=== PATIENT | female | born 1935 | race Caucasian/White ===

== ENCOUNTER 2016-11-24 21:50 | Emergency (ER) | payer OTHER ==
[2016-11-24 22:05] VITALS: PULSE 60; TEMP 97.4; BMI 20.2
--- NOTE | 2016-11-24 22:09 | PDOC ---
History of Present Illness - General Chief Complaint: Bite Stated Complaint: BITE TO RIGHT FOOT Time Seen by Provider: 11/24/16 22:07 - History of Present Illness Initial Comments: This 81-year-old woman with a history of atrial fibrillation/hyperlipidemia/ hypothyroidism presents with right foot discomfort and lightheadedness for the last few hours. Patient states that she was walking with a friend in a grassy area when she had sensation of being bitten on the lateral aspect of her right foot. Over the next few hours, the discomfort persisted with sensation of numbness to touch of the left foot. She noted some localized faint erythema and edema around the area where she felt the pain. She also became lightheaded. She called the friend and proceeded to the emergency room. The patient and friend did not note any animal/reptile in the area of where they were walking. The patient had consult to the Internet prior to coming to the emergency room and was concerned that she was bitten by a snake. Patient denies any sensitivity/ALLERGY to insect toxin, stating that she has been bitten/stung by wasps in the past without the level of discomfort that she is feeling now. Patient denies swelling of lips/tongue, difficulty swallowing or breathing, wheezing, chest pain or abdominal pain. She has had no nausea/vomiting. Patient is currently taking Xarelto anticoagulation for her atrial fibrillation. She is taking medications as prescribed Patient states that her PMD is Bladimir Chaney Past History - Past Medical History Allergies/Adverse Reactions: Allergies Allergy/AdvReac Type Severity Reaction Status Date / Time Penicillins Allergy Intermediate Rash Verified 11/24/16 21:52 Home Medications: Ambulatory Orders Levothyroxine [Synthroid] 112 mcg PO DAILY 08/02/12 Rivaroxaban [Xarelto -] 20 mg PO DAILY 11/24/16 Cardiac Disorders: Yes (ATRIAL FIBRILLATION) Hypercholesterolemia: Yes Thyroid Disease: Yes (HYPO) - Psycho/Social/Smoking Cessation Hx Anxiety: No Suicidal Ideation: No Smoking Status: No Smoking History: Never smoked Have you smoked in the past 12 months: No Number of Cigarettes Smoked Daily: 0 Information on smoking cessation initiated: No Hx Alcohol Use: No Drug/Substance Use Hx: No Review of Systems - Review of Systems Able to Perform ROS?: Yes Comments:: 12 point review of systems is negative except for what is noted in the history of present illness *Physical Exam - Vital Signs Last Vital Signs Temp Pulse Resp BP Pulse Ox 97.4 F L 60 18 168/79 100 11/24/16 22:01 11/24/16 22:01 11/24/16 22:01 11/24/16 22:01 11/24/16 22:01 - Physical Exam Comments: GENERAL: Elderly female, anxious but in no acute distress HEAD: Normal with no signs of trauma. EYES: PERRLA, EOMI, sclera anicteric, conjunctiva clear. ENT: Ears normal, nares patent, oropharynx clear without exudates. Dry mucous membranes. NECK: Normal range of motion, supple without lymphadenopathy, JVD, or masses. LUNGS: Breath sounds equal, clear to auscultation bilaterally. No wheezes, and no crackles. HEART:Regular rate and rhythm, normal S1 and S2 without murmur, rub or gallop. ABDOMEN:.normal bowel sounds No guarding,tenderness or rebound.No masses No distention. EXTREMITIES: Right lower extremityfaintly erythematous, mildly edematous, nontender 2 cm by 1 cm area of the lateral midfoot No central bite pierce noted; no proximal erythema or edema noted Remainder of the extremity exam is normal NEUROLOGICAL: Cranial nerves II through XII grossly intact. Normal speech. No focal neurological deficits. MUSCULOSKELETAL: Back non-tender to palpation, no CVA tenderness ED Treatment Course - LABORATORY CBC & Chemistry Diagram: 11/24/16 22:30 11/24/16 22:30 Medical Decision Making - Medical Decision Making This 81-year-old woman presents with discomfort in the lateral aspect of her right foot; this sharp pain occurred suddenly as she was walking in a grassy area approximately 2-1/2 hours prior to presentation. She was wearing shoes that had this area of skin exposed. She has had persistent discomfort and numbness of the foot. Other than lightheadedness, she has no other symptoms. Exam as noted with mild inflammation around an area without clear bite pierce seen. Remainder of the exam is normal. Although this presentation is most consistent with local reaction to insect bite , since the patient is convinced that she has sustained a snake bite (after reading about her symptoms on the Internet) and since she has lightheadedness, CBC, chemistry profile, cardiac enzymes, INR and urinalysis was sent. Laboratory evaluation shows some evidence of prerenal azotemia with BUN of 17 and creatinine of 0.5; there is no evidence of electrolyte abnormalities, LFT elevations. CBC is normal. Urinalysis shows no evidence of unusual casts or myoglobinuria. CK and troponin are normal. INR is elevated at 2. Patient was given 650 mg of Tylenol by mouth for her pain while awaiting completion of her laboratory evaluation. Soon after she was given the Tylenol, pain resolved and she had no further numbness in the area around the presumed bite wound. Results discussed with the patient. She should follow-up with her general doctor within the next few days, especially in light of her elevation of INR ( most likely related to her NOAC and not a coagulopathy). Meanwhile, she should elevate and put cool compresses to the right foot. She should return to the emergency room if the right foot becomes edematous/erythematous/more painful. *DC/Admit/Observation/Transfer Diagnosis at time of Disposition: Other superficial bite of right foot - Discharge Dispostion Disposition: HOME Condition at time of disposition: Stable - Patient Instructions Printed Discharge Instructions: DI for Insect Bites and Stings Additional Instructions: Elevate/cool compresses to area of bite over the next 2 days Tylenol as needed for pain Return to ER or see Dr. Hnery if wound becomes more swollen/red/painful or you develop fever Follow-up with Dr. Henry within the next week
[2016-11-24 22:41] LABS: BASOPHIL 1.9 % (0-2.0); EOSINOPHIL 4.8 % (0-4.5); MCH 29.4 pg (25.7-33.7); MCHC 33.8 g/dl (32.0-36.0); MEAN CELL VOLUME 86.9 fl (80-96); MEAN PLT VOLUME 8.4 fl (7.5-11.1); NEUTROPHILS 54.4 % (42.8-82.8); RDW 15.1 % (11.6-15.6); WHITE BLOOD COUNT 5.4 K/mm3 (4.0-10.8)
[2016-11-24 22:52] LABS: INR 2.19 (0.82-1.09); PROTHROMBIN TIME (PATIENT) 24.2 SEC (10.2-13.0)
[2016-11-24] MEDS ORDERED: ACETAMINOPHEN 325 MG TABLET (FP) PO ONE (22:54)
[2016-11-24] MEDS ORDERED: ACETAMINOPHEN 325 MG TABLET (FP) ONE (22:56)
[2016-11-24 23:13] LABS: ALBUMIN 4.4 g/dl (3.5-5.0); ALK PHOS 58 U/L (32-92); ANION GAP 5 (8-16); BILIRUBIN,TOTAL 0.5 mg/dl (0.2-1.0); CALCIUM 10.1 mg/dl (8.4-10.2); CO2 27 mmol/L (22-28); CPK 48 IU/L (26-192); CREATININE 0.5 mg/dl (0.6-1.3); GLUCOSE,RANDOM 112 mg/dl (74-106); SGOT/AST 24 U/L (10-42); SGPT/ALT 15 U/L (10-40); TOT PROT 6.3 g/dl (6.4-8.3)
[2016-11-24 23:26] LABS: PLATELET COUNT 230 K/MM3 (134-434)
[2016-11-24 23:27] LABS: URINE APPEARANCE Clear; URINE BILIRUBIN Negative (NEGATIVE); URINE BLOOD Negative (NEGATIVE); URINE GLUCOSE (UA) Negative (NEGATIVE); URINE KETONE 1+ (NEGATIVE); URINE NITRITE Negative (NEGATIVE); URINE PROTEIN Negative (NEGATIVE); URINE UROBILINOGEN 0.2 (0.2-1.0)
[2016-11-24 23:31] LABS: TROPONIN I (DFP) < 0.03 ng/ml (0.03-0.50)
[2016-11-24 23:41] LABS: URINE COLOR YELLOW; URINE LEUK ESTERASE 1+ (NEGATIVE)
[2016-11-25 00:04] LABS: URINE BACTERIA 1+ /hpf (NEGATIVE); URINE RBC 0-3 /hpf (0-3)
[2016-11-25] MEDS ORDERED: DIPHTH,PERTUSS(ACELL),TET 0.5 ML DISP.SYRIN IM ONE (00:36)
[2016-11-25 00:44] VITALS: BP 175/75
== END 2016-11-25 00:45 | disposition home or self-care (01) ==
LOC: FER 21:50
PROC: 3E0234Z Introduction of Serum, Toxoid and Vaccine into Muscle, Percutaneous Approach (ICD-10-PCS; principal; 2016-11-24)
DX: S91.351A Open bite, right foot, initial encounter (principal); Y93.89 Activity, other specified; Y92.89 Other specified places as the place of occurrence of the external cause; I48.91 Unspecified atrial fibrillation; E78.5 Hyperlipidemia, unspecified; E03.9 Hypothyroidism, unspecified
CPT/HCPCS: 36415; 80053; 81003; 81015; 84484; 85025; 85610; 90715; 99281-25